=== PATIENT | female | born 1965 | race Caucasian/White ===

== ENCOUNTER 2022-08-07 08:28 | Outpatient (CLI) | payer MEDICAID, SELFPAY ==
--- NOTE | 2022-08-07 08:45 | CRLHL7_ITS ---
For Patients: As a result of the Century Cures Act, medical imaging exams and procedure reports are released immediately into your electronic medical record. You may view this report before your referring provider. If you have questions, please contact your health care provider. BILATERAL SCREENING MAMMOGRAM WITH COMPUTER-AIDED DETECTION AND TOMOSYNTHESIS TECHNIQUE: CC and MLO views were obtained. These mammographic images have been obtained using full-field digital technique. These mammographic images were interpreted with the benefit of computer-aided detection. Breast Tomosynthesis was used in this interpretation. COMPARISON FILM: 09/18/21, 08/31/20, 08/24/19. FINDINGS: There are scattered areas of fibroglandular density IMPRESSION: There is no radiographic evidence for malignancy. ASSESSMENT: BI-RADS Category 1: Negative RECOMMENDATION: Routine screening mammogram in 1 year. A lay language report of this examination will be provided to the patient. Greyson Ga M.D. Diagnostic/Nuclear Medicine Radiologist [email or web address] STELLA/Dictated by: Greyson Ga MD @ 08/07/2022 10:26:00 AM (Electronically Signed)
== END 2022-08-07 08:29 | disposition home or self-care (01) ==
LOC: MAMMO 08:30
PROVIDERS: PCP Physician Assistant Medical; Visit Provider Obstetrics & Gynecology
DX: Z12.31 Encounter for screening mammogram for malignant neoplasm of breast (principal)
CPT/HCPCS: 77063; 77067

== ENCOUNTER 2022-08-13 13:37 | Outpatient (CLI) | payer MEDICAID, SELFPAY ==
[2022-08-13 17:08] LABS: Chlamydia DNA Amplified* NOT DETECTED (No Detected); GC DNA Amplified* NOT DETECTED (No Detected)
== END 2022-08-13 13:38 | disposition home or self-care (01) ==
LOC: NFLDREF 13:38
PROVIDERS: PCP Physician Assistant Medical; Visit Provider Obstetrics & Gynecology
DX: Z01.419 Encounter for gynecological examination (general) (routine) without abnormal findings (principal); Z11.3 Encounter for screening for infections with a predominantly sexual mode of transmission
CPT/HCPCS: 87491; 87591

== ENCOUNTER 2023-08-27 13:27 | Outpatient (CLI) | payer OTHER, SELFPAY | END 2023-08-27 13:28 | disposition home or self-care (01) | PROVIDERS: PCP Physician Assistant Medical; Visit Provider Registered Nurse | DX: Z13.220 Encounter for screening for lipoid disorders (principal); Z13.29 Encounter for screening for other suspected endocrine disorder; Z13.1 Encounter for screening for diabetes mellitus | CPT/HCPCS: 80061; 82947; 84443 ==

== ENCOUNTER 2023-08-31 09:39 | Outpatient (CLI) | payer OTHER, SELFPAY ==
--- NOTE | 2023-08-31 09:45 | MM_ITS ---
Patient: SARABJIT NG Facility:?[facility] Patient ID:?[id number] Site Patient ID:?[id number]. Site :?[id number] Study:?XRay-Breast Bilateral 3D W/CAD-08/31/2023 10:06:08 AM Ordering Physician:Viky Sexton Final Report: BILATERAL SCREENING MAMMOGRAM WITH COMPUTER-AIDED DETECTION AND TOMOSYNTHESIS TECHNIQUE: CC and MLO views were obtained. These mammographic images have been obtained using full-field digital technique. These mammographic images were interpreted with the benefit of computer-aided detection. Breast Tomosynthesis was used in this interpretation. COMPARISON FILM: 08/07/22, 09/18/21, 08/31/20. FINDINGS: There are scattered areas of fibroglandular density. IMPRESSION: There is no radiographic evidence for malignancy. ASSESSMENT: BI-RADS Category 1: Negative RECOMMENDATION: Routine screening mammogram in 1 year. A lay language report of this examination will be provided to the patient. Greyson Ga M.D. Diagnostic/Nuclear Medicine Radiologist [email or web address] RUMA/jessica R& Transcribed: 2:08 pm SP/Dictated by: Greyson Ga MD @ 09/03/2023 10:44:00 AM Signed by:Rosangela Ga MD @09/03/2023 3:31:27 PM (Electronic Signature)
== END 2023-08-31 09:40 | disposition home or self-care (01) ==
PROVIDERS: PCP Physician Assistant Medical; Visit Provider Obstetrics & Gynecology
DX: Z12.31 Encounter for screening mammogram for malignant neoplasm of breast (principal)
CPT/HCPCS: 77063; 77067

== ENCOUNTER 2024-09-27 13:13 | Outpatient (CLI) | payer OTHER, SELFPAY ==
--- NOTE | 2024-09-27 13:20 | CRLHL7_ITS ---
For Patients: As a result of the Century Cures Act, medical imaging exams and procedure reports are released immediately into your electronic medical record. You may view this report before your referring provider. If you have questions, please contact your health care provider. BILATERAL SCREENING MAMMOGRAM WITH COMPUTER-AIDED DETECTION AND TOMOSYNTHESIS TECHNIQUE: CC and MLO views were obtained. These mammographic images have been obtained using full-field digital technique. These mammographic images were interpreted with the benefit of computer-aided detection. Breast Tomosynthesis was used in this interpretation. COMPARISON FILM: 08/31/23, 08/07/22, 09/18/21. FINDINGS: The breasts are heterogeneously dense, which may obscure small masses. IMPRESSION: There is no radiographic evidence for malignancy. ASSESSMENT: BI-RADS Category 1: Negative RECOMMENDATION: Routine screening mammogram in 1 year. A lay language report of this examination will be provided to the patient. Frankie Becerra M.D. Diagnostic Radiologist [email or web address] SP/Dictated by: Frankie Becerra MD @ 09/28/2024 8:54:00 AM (Electronically Signed)
== END 2024-09-27 13:14 | disposition home or self-care (01) ==
LOC: MAMMO 13:14
PROVIDERS: PCP Physician Assistant Medical; Visit Provider Physician Assistant Medical
DX: Z12.31 Encounter for screening mammogram for malignant neoplasm of breast (principal); R92.333 Mammographic heterogeneous density, bilateral breasts
CPT/HCPCS: 77063; 77067

== ENCOUNTER 2024-10-13 15:26 | Outpatient (CLI) | payer OTHER, SELFPAY ==
--- NOTE | 2024-10-13 15:30 | CRLHL7_ITS ---
For Patients: As a result of the Century Cures Act, medical imaging exams and procedure reports are released immediately into your electronic medical record. You may view this report before your referring provider. If you have questions, please contact your health care provider. XR DXA Bone Mineral Density (BMD) Reason for exam: Other specified disorders of bone density. Current height (in): 67. Weight (lb): 173. Menopause age: 48. Ethnicity: White. 1. Have you had a previous hip or vertebral fracture? No. 2. Have you had any fractures during your adult life which did not result from significant trauma (e.g., auto accident)? No. 3. Did either of your parents have a hip fracture? No. 4. Do you smoke? No. 5. Have you ever taken Glucocorticoids? No. 6. Do you have rheumatoid arthritis? No. 7. Do you have secondary osteoporosis? No. 8. Do you drink 3 or more alcoholic drinks per day? No. 9. Are you being treated for osteoporosis? No. 10. Have you ever taken any of the following medications: Actonel, Evista, Fosamax, Miacalcin, Reclast, Boniva, Forteo, HRT (i.e., estrogen/hormone therapy), Protelos, Prolia, Vitamin D, Calcium, other ??? please specify. ANSWER: Yes, vitamin D and calcium. 11. Do you have any of the following medical conditions: Anorexia or bulimia, asthma or emphysema, end stage renal disease, hyperparathyroidism, any seizure disorders, cancer, inflammatory bowel diseases, hysterectomy, other ??? please specify. ANSWER: Yes, hysterectomy. 12. What was your maximum height (inches)? 67. 13. Do you perform weight bearing exercise regularly? No. 14. Do you regularly consume dairy products? Yes. 15. Do you drink caffeinated beverages? Yes. 16. At what age did your period start? 13. 17. Are you premenopausal? No. 18. How many full-term pregnancies have you had? 1. 19. Have you ever missed your period for more than 6 months in a row (not including or menopause)? Yes. TECHNIQUE: Bone mineral density study was performed using the [employer]. FINDINGS: The results of the study expressed as bone mineral density (BMD) are as follows: Lumbar spine L1 to L4: BMD: 0.836 g/cm2. T-score: -1.9. Z-score: -0.4 Neck Left: BMD: 0.675 g/cm2. T-score: -1.6. Z-score: -0.2 Right: BMD: 0.730 g/cm2. T-score: -1.1. Z-score: 0.3 Total Left: BMD: 0.839 g/cm2. T-score: -0.8. Z-score: 0.2 Right: BMD: 0.858 g/cm2. T-score: -0.7. Z-score: 0.3 IMPRESSION: Osteopenia. *Comparison exams done prior to 12/2019 were performed on different unit, [employer]. COMPARISON: Compared with scan of 09/13/2020, the bone mineral density has decreased by 4.7 percent at the spine and increased by 1.9 percent at the hip. FRAX 10-year Fracture Risk Major Osteoporotic Fracture: 8.3% Hip Fracture: 0.7% Reported Risk Factors: [place] () Neck BMD=0.675, BMI=27.1 Frankie Becerra M.D. Diagnostic Radiologist [email or web address] FABIANA/[email or web address] dia/Dictated by: Frankie Becerra MD @ 10/14/2024 11:10:00 AM (Electronically Signed)
== END 2024-10-13 15:27 | disposition home or self-care (01) ==
LOC: RAD 15:31
PROVIDERS: PCP Physician Assistant Medical; Visit Provider Physician Assistant
DX: M85.80 Other specified disorders of bone density and structure, unspecified site (principal); M85.89 Other specified disorders of bone density and structure, multiple sites
CPT/HCPCS: 77080